=== PATIENT | female | born 1960 | race Caucasian/White ===

== ENCOUNTER 2016-08-22 10:20 | Day surgery (SDC) | payer MEDICAID ==
[~2016-08-22] VITALS: Ht 149.9 cm; Wt 85.0 kg
[2016-08-22] VITALS (14 sets, daily range): BP systolic 121–140; BP diastolic 60–84; PULSE 54–100; RESP 16–21; Ht 149.9 cm; Wt 85.0 kg
[~2016-08-22 10:20] MED LIST: ACETAMINOPHEN 1000 MG/100 ML IVPB ONE; CEFAZOLIN 1 GM INJ ONE
[2016-08-22 11:22] LABS: ADD SCAN DIFF NO
[2016-08-22 11:27] LABS: BASOPHILS % 0.6 % (0.0-2.0); EOSINOPHILS # 0.1 10^3/ul (0.0-0.5); EOSINOPHILS % 1.8 % (0.0-7.0); HEMATOCRIT 38.5 % (37.0-47.0); HEMOGLOBIN 12.5 g/dl (12.0-16.0); LYMPHOCYTES # 3.2 10^3/ul (0.8-2.9); LYMPHOCYTES % 46.4 % (15.0-51.0); MEAN CORPUSCULAR HEMOGLOBIN 28.9 pg (29.0-33.0); MEAN CORPUSCULAR HGB CONC 32.5 g/dl (32.0-37.0); MEAN CORPUSCULAR VOLUME 88.9 fl (82.0-101.0); MEAN PLATELET VOLUME 10.3 fl (7.4-10.4); MONOCYTE # 0.8 10^3/ul (0.3-0.9); MONOCYTES % 11.7 % (0.0-11.0); NEUTROPHIL # 2.7 10^3/ul (1.6-7.5); NEUTROPHILS % 39.4 % (39.0-77.0); PLATELET COUNT 297 10^3/UL (140-415); RED BLOOD COUNT 4.33 10^6/ul (4.20-5.40); RED CELL DISTRIBUTION WIDTH 14.1 % (11.5-14.5); WHITE BLOOD COUNT 6.9 10^3/ul (4.8-10.8)
[2016-08-22] MEDS ORDERED: SOD CHLORIDE 0.9% 1,000 ML IV SCH (11:30)
[2016-08-22] MEDS ORDERED: CEFAZOLIN 1 GM/50 ML (PMX) 50 ML IVPB ONE (11:30)
[2016-08-22 11:48] LABS: INR 0.9; PROTIME 12.1 Sec (12.2-14.2); PT RATIO 0.9
[2016-08-22 11:52] LABS: ALBUMIN 4.4 g/dl (3.3-4.9); BILIRUBIN,INDIRECT 0.5 mg/dl (0-1.1); BILIRUBIN,TOTAL 0.5 mg/dl (0.2-1.3); TOTAL PROTEIN 7.4 g/dl (6.1-8.1)
[2016-08-22 11:53] LABS: ALBUMIN/GLOBULIN RATIO 1.46
[2016-08-22 12:01] LABS: CALCIUM 9.4 mg/dl (8.4-10.2); CREATININE 0.84 mg/dl (0.44-1.00); POTASSIUM 3.9 mmol/L (3.5-5.1)
--- NOTE | 2016-08-22 14:06 | RADRPT ---
PROCEDURE: XR Chest. CLINICAL INDICATION: Preoperative. TECHNIQUE: Single frontal view. COMPARISON: None. FINDINGS: The lungs are clear. Surgical clips are present in the right axilla. The heart size is normal. There is no pleural effusion. There is no pneumothorax. IMPRESSION: 1. Prior right axillary surgery. 2. Otherwise normal chest radiograph. RPTAT: QQ .Prashanth Salcedo MD, MD Date Time Electronically viewed and signed by .Prashanth Salcedo MD, MD on 08/22/2016 14:06 .R/
[2016-08-22] MEDS ORDERED: PROPOFOL 60 ML ONE (14:44)
[2016-08-22] MEDS ORDERED: LIDOCAINE 2% (SDV) 5 ML INJ ONE (14:45)
[2016-08-22] MEDS ORDERED: ROCURONIUM 50 MG INJ ONE (14:45)
[2016-08-22] MEDS ORDERED: FENTAnyl 50 MCG/ML VIAL ONE ×2 (14:46→16:08)
[2016-08-22] MEDS ORDERED: DEXAMETHASONE 4 MG/ML 1 ML INJ ONE (16:08)
[2016-08-22] MEDS ORDERED: ONDANSETRON 4 MG INJ ONE (16:45)
--- NOTE | 2016-08-22 16:57 | RADRPT ---
Vent Rate: 62 bpm RR Interval: 0 msec CA Interval: 146 msec QRS Duration: 94 msec QT Interval: 434 msec QTC Interval: 440 msec P-R-T [place]: 50 - 40 - 13 degrees Normal sinus rhythm Normal ECG Electronically Signed By: Gerardo Corral [id number]
[2016-08-22] MEDS ORDERED: METOCLOPRAMIDE 10 MG INJ IV PRN (17:00)
[2016-08-22] MEDS ORDERED: ONDANSETRON 4 MG INJ IV PRN ×2 (17:00)
[2016-08-22] MEDS ORDERED: HYDROmorphONE (0.2 MG/ML) 10ML SYG IV PRN ×3 (17:00)
[2016-08-22] MEDS ORDERED: EPHEDrine SULFATE 50 MG/5 ML SYG IV PRN (17:00)
[2016-08-22] MEDS ORDERED: FENTAnyl 50 MCG/ML VIAL IV PRN ×3 (17:00)
[2016-08-22] MEDS ORDERED: DIPHENHYDRAMINE 50 MG INJ IV PRN (17:00)
[2016-08-22] MEDS ORDERED: LABETALOL HCL 20MG INJ IV PRN (17:00)
[2016-08-22] MEDS ORDERED: MEPERIDINE 25 MG INJ IV PRN (17:00)
[2016-08-22] MEDS ORDERED: OXYCODONE/ACETAMINOPHEN (5/325) TAB PO PRN ×2 (17:00)
[2016-08-22] MEDS ORDERED: ACETAMINOPHEN 1000MG/100ML IV 100 ML IVPB PRN (17:00)
[2016-08-22] MEDS ORDERED: morphine 2 MG INJ IV PRN (17:00)
[2016-08-22] MEDS ORDERED: hydrALAzine 20 MG INJ IV PRN (17:00)
--- NOTE | 2016-08-22 17:42 | HP ---
Date/Time of Note Date/Time of Note DATE: 08/22/16 TIME: 17:35 Assessment/Plan VTE Prophylaxis VTE Prophylaxis Intervention: SCD's Lines/Catheters IV Catheter Type (from Nrsg): Peripheral IV Assessment/Plan Assessment/Plan - Recurrent cancer of the right breast, status post right radical mastectomy. Continue Zofran as needed for nausea and Tylenol and morphine as needed for pain. Continue IV fluids and postoperative antibiotics. Advance diet as patient tolerates. CBC and BMP tomorrow. Further recommendations based on clinical course. End of care discussed with Dr. Reddy. HPI/ROS Admit Date/Time Admit Date/Time Hx of Present Illness The patient is 55-year-old female with recurrent cancer of the right breast. Patient was diagnosed with invasive carcinoma of the right breast in 1998 and was treated at [facility]. At that time patient underwent breast conservation surgery followed by chemo and radiation therapy. Patient is noted to have right breast mass, subsequent biopsy revealed ductal carcinoma. The patient was evaluated by Dr. Gallegos in surgical consultation. She was brought to the hospital and underwent right radical mastectomy. Postoperatively patient experienced moderate pain and mild nausea. Patient will be admitted for further evaluation and management. ROS 12 point review of systems is negative unless for mentioned in HPI PMH/Family/Social Past Medical History Medical History: no pertinent history Past Surgical History Status post breast conservation surgery of the right breast in 1998, status post biopsy for uterine fibroids in 2004. Family History Significant Family History: no pertinent family hx Social History Alcohol Use: none Smoking Status: Never smoker Drug Use: none Exam/Review of Systems Vital Signs Vitals Vital Signs Date Time Temp Pulse Resp B/P Pulse Ox O2 Delivery O2 Flow Rate FiO2 08/22/16 16:54 98.2 65 18 128/61 99 Nasal Cannula 4.0 Exam Constitutional: alert, oriented Head: atraumatic, normocephalic Eyes: nl conjunctiva Neck: non-tender, supple Respiratory: normal air movement Cardiovascular: nl pulses Gastrointestinal: non-tender, soft Musculoskeletal: nl extremities to inspection Extremities: normal pulses Neurological: nl mental status Skin: other (Status post right radical mastectomy with dry clean and intact dressing in JPs 2) Labs Result Diagram: 08/22/16 1115 08/22/16 1115 Medications Medications Current Medications Sodium Chloride (NS) 1,000 ml @ 75 mls/hr [id number] IV ; Start 08/22/16 at 11:30; Stop 08/23/16 at 00:49 Ondansetron HCl 4 mg 4 mg Q6H PRN IV NAUSEA AND/OR VOMITING; Start 08/22/16 at 17:00 Potassium Chloride/Dextrose/ Sod Cl (D5-1/2ns + KCl 20 Meq) 1,000 ml @ 125 mls/ hr Q8H IV ; Start 08/22/16 at 16:56 Morphine Sulfate 2 mg 2 mg Q1H PRN IV PAIN; Start 08/22/16 at 17:00 Acetaminophen (Ofirmev 1000mg/ 100ml Iv) 100 ml @ 400 mls/hr Q6H PRN IVPB PAIN ; Start 08/22/16 at 17:00 DOMENICA PRETTY Aug 22, 2016 17:42
[2016-08-22] MEDS: D5W-0.45 NACL + KCL 20 MEQ 1,000 ML IV SCH (19:50)
[2016-08-23] VITALS (7 sets, daily range): BP systolic 101–119; BP diastolic 54–59; PULSE 63–69; RESP 14–20
[2016-08-23] MEDS: D5W-0.45 NACL + KCL 20 MEQ 1,000 ML IV SCH ×3 (00:07→12:36)
[2016-08-23 08:37] LABS: ADD SCAN DIFF NO
[2016-08-23 08:57] LABS: BASOPHILS % 0.1 % (0.0-2.0); HEMATOCRIT 37.8 % (37.0-47.0); HEMOGLOBIN 12.1 g/dl (12.0-16.0); LYMPHOCYTES # 1.8 10^3/ul (0.8-2.9); LYMPHOCYTES % 14.1 % (15.0-51.0); MEAN CORPUSCULAR HEMOGLOBIN 28.8 pg (29.0-33.0); MEAN PLATELET VOLUME 10.3 fl (7.4-10.4); MONOCYTE # 0.5 10^3/ul (0.3-0.9); NEUTROPHIL # 10.3 10^3/ul (1.6-7.5); NEUTROPHILS % 81.3 % (39.0-77.0); PLATELET COUNT 265 10^3/UL (140-415); WHITE BLOOD COUNT 12.7 10^3/ul (4.8-10.8)
[2016-08-23 09:20] LABS: CREATININE 0.69 mg/dl (0.44-1.00)
--- NOTE | 2016-08-23 12:46 | PN ---
Date/Time of Note Date/Time of Note DATE: 08/23/16 TIME: 12:45 Assessment/Plan VTE Prophylaxis VTE Prophylaxis Intervention: other Lines/Catheters [facility] Per[facility] IV Urinary Cath still in place: No Assessment/Plan Chief Complaint/Hosp Course 1) breast cancer - s/p mastectomy - monitor - discharge per surgery Problems: Subjective 24 Hr Interval Summary Free Text/Dictation Patient denies any complaints Exam/Review of Systems Vital Signs Vitals Vital Signs Date Time Temp Pulse Resp B/P Pulse Ox O2 Delivery O2 Flow Rate FiO2 08/23/16 12:00 98.0 69 18 115/55 95 Room Air 08/22/16 19:08 2.0 Intake and Output 08/22/16 08/22/16 08/23/16 15:00 23:00 07:00 Intake Total 1300 ml 1565 ml Output Total 65 ml 1125 ml Balance 1235 ml 440 ml Exam Constitutional: well developed Head: atraumatic, normocephalic Neck: supple Respiratory: clear to auscultation Cardiovascular: regular rate and rhythm Gastrointestinal: non-tender, soft Results Result Diagram: 08/23/16 0820 08/23/16 0820 Results 24 hrs Laboratory Tests Test 08/23/16 06:11 08/23/16 08:20 Lab Scanned Report LAB White Blood Count 12.7 #H Red Blood Count 4.20 Hemoglobin 12.1 Hematocrit 37.8 Mean Corpuscular Volume 90.0 Mean Corpuscular Hemoglobin 28.8 L Mean Corpuscular Hemoglobin Concent 32.0 Red Cell Distribution Width 14.0 Platelet Count 265 Mean Platelet Volume 10.3 Neutrophils % 81.3 H Lymphocytes % 14.1 L Monocytes % 4.0 Eosinophils % 0.0 Basophils % 0.1 Nucleated Red Blood Cells % 0.0 Neutrophils # 10.3 H Lymphocytes # 1.8 Monocytes # 0.5 Eosinophils # 0.0 Basophils # 0.0 Nucleated Red Blood Cells # 0.0 Sodium Level 137 Potassium Level 4.0 Chloride Level 105 Carbon Dioxide Level 26 Anion Gap 10 Blood Urea Nitrogen 15 Creatinine 0.69 Glucose Level 134 # Calcium Level 9.0 Medications Medications Current Medications Ondansetron HCl 4 mg 4 mg Q6H PRN IV NAUSEA AND/OR VOMITING; Start 08/22/16 at 17:00 Potassium Chloride/Dextrose/ Sod Cl (D5-1/2ns + KCl 20 Meq) 1,000 ml @ 125 mls/ hr Q8H IV Last administered on 08/23/16 12:36; Admin Dose 125 MLS/HR; Start 08/22/16 at 16:56 Morphine Sulfate 2 mg 2 mg Q1H PRN IV PAIN Last administered on 08/22/16 19:50 ; Admin Dose 2 MG; Start 08/22/16 at 17:00 Acetaminophen (Ofirmev 1000mg/ 100ml Iv) 100 ml @ 400 mls/hr Q6H PRN IVPB PAIN ; Start 08/22/16 at 17:00 ZANDER CLANCY Aug 23, 2016 12:46
--- NOTE | 2016-08-31 08:30 | OPR ---
DATE OF OPERATION: 08/22/2016 PREOPERATIVE DIAGNOSIS: Recurrent cancer, right breast. POSTOPERATIVE DIAGNOSIS: Recurrent cancer, right breast. OPERATION PERFORMED: Right modified radical mastectomy. ANESTHESIA: General. ANESTHESIOLOGIST: Dr. Hurtado. SURGEON: Brady Gallegos MD CAT[employer]ULT AND ARRESTING GEAR OFFICER: Zach Oh MD INDICATION: The patient is a 55-year-old female with a pertinent past medical history of invasive cancer in her right breast diagnosed in 1998 and treated with breast conservation surgery at Hospital. At that time she underwent subsequent adjuvant chemotherapy and radiation. Recently she underwent a surveillance mammography and thought to have suspicious region in her right breast, somewhat away from the site of the previous cancer. Core biopsy confirmed an invasive cancer. She was counseled as to the need for modified radical mastectomy due to the fact that she had previous chemotherapy and radiation. She consented and was scheduled for surgery. DESCRIPTION OF PROCEDURE: The patient was brought to the operating theater and placed under general endotracheal tube anesthesia. The right breast and axillary region was prepped and draped in the usual sterile fashion. Elliptical incision was demarcated with marking pen around the nipple areolar complex including portion of the skin overlying the breast. Incision was carried out with 15 blade scalpel. Subcutaneous tissue was dissected with cautery. Skin edges were then elevated with clamps and skin flaps were created sequentially first using cautery to the clavicle, then medially to the sternal border, inferiorly to the inframammary fold, and laterally until the latissimus dorsi muscle was identified throughout its course. Mastectomy then took place using cautery from medial to lateral to border of the pectoralis major muscle. The border of the pectoralis minor muscle was identified. Clavipectoral fascia was incised with blunt dissection along the chest wall. The long thoracic nerve was identified and kept out of harm's way. More superiorly the axillary vein and thoracodorsal nerve vascular bundle were identified and kept off harm's way. A residual node bearing tissue was meticulously dissected using a ligature device. Final connective tissue attachments to the latissimus dorsi muscle were then transected with cautery. Specimen was removed, oriented, and sent for permanent pathologic analysis. The wound was irrigated and minimal bleeding was controlled with cautery. Two number 10 flat Alexandr-Portillo drains were then brought through the midaxillary line. One was cut to size and laid over the pectoralis major muscle. The other was cut to size and laid within the axilla. Both drains were secured in place with a 2-0 nylon suture in the standard fashion and the skin incision was reapproximated with skin adryan. The patient tolerated the procedure well. Total estimated blood loss was approximately 40 cc. There were no complications. The patient was transported in stable condition to the recovery room where circumferential compression dressing was applied. Dictated By: Brady Gallegos MD /idalmis/chloe /Document#: [id number]
--- NOTE | 2016-09-02 05:04 | PN ---
DATE: 08/23/2016 SUBJECTIVE DATA: The patient is status post right modified radical mastectomy which was done yesterday, 08/22/2016. The patient has no complaints, minimal pain. OBJECTIVE DATA: Vital signs: 98.2, 76, respirations 16, blood pressure 101/59. Saturation 93% on room air. LABORATORY AND DIAGNOSTIC DATA: WBC 12,700. 81% segmented. Hemoglobin 12.1, hematocrit 37.8. The Alexandr-Portillo drainage has been 20 mL and 50 mL respectively in the past 12 hours. ASSESSMENT AND PLAN: 55-year-old female who underwent modified right radical mastectomy because of recurrent cancer of the right breast. Vital signs are stable. Minimal bleeding. Alexandr- Portillo drainage serosanguineous. The patient is free of pain. The patient can be discharged today to be followed by Dr. De La Rosa in his office. The patient is to call the office on Thursday and make an appointment. Dictated By: Bin Durham MD /idalmis/luigi /Document#: [id number]
== END 2016-08-23 20:50 | disposition home or self-care (01) ==
LOC: SDS 10:20 → PP2 18:42 → SDS 08-23 20:50
PROVIDERS: ATTEND Surgery Surgical Oncology
DX: C50.911 Malignant neoplasm of unspecified site of right female breast (principal); Z17.0 Estrogen receptor positive status [ER+]; E66.9 Obesity, unspecified; Z68.37 Body mass index [BMI] 37.0-37.9, adult
CPT/HCPCS: 19307; 71010; 80048; 80053; 84703; 85025; 85610; 85730; 88307; 93005; J0131; J0690; J1100; J2270; J2405; J3010; J3480; Z7512; Z7610

== ENCOUNTER 2016-11-14 07:17 | Day surgery (SDC) | payer MEDICAID ==
[2016-11-14] VITALS (8 sets, daily range): BP systolic 105–150; BP diastolic 60–75; PULSE 60–74; RESP 13–20; Ht 152.4 cm; Wt 87.0 kg
[~2016-11-14] VITALS: Ht 152.4 cm; Wt 87.0 kg
[2016-11-14] MEDS ORDERED: POLYMYXIN/BACITRACIN 1L IRRIG IRR ONE (08:00)
[2016-11-14] MEDS ORDERED: SOD CHLORIDE 0.9% 1,000 ML IV SCH (08:00)
[2016-11-14] MEDS ORDERED: CEFAZOLIN 1 GM/50 ML (PMX) 50 ML IVPB ONE ×3 (08:00→09:54)
[2016-11-14] MEDS ORDERED: HEPARIN 1000 UNITS/ML 10 ML INJ ONE (08:21)
[2016-11-14] MEDS ORDERED: LIDOCAINE 2%/EPI 30 ML INJ ONE (08:21)
[2016-11-14] MEDS ORDERED: SOD CHLORIDE 0.9% 500 ML ONE (08:21)
[2016-11-14] MEDS ORDERED: MIDAZOLAM 1 MG/ML 2 ML INJ ONE ×2 (09:54)
[2016-11-14] MEDS ORDERED: FENTAnyl 50 MCG/ML VIAL ONE ×2 (09:54)
--- NOTE | 2016-11-14 11:09 | RADRPT ---
PROCEDURE: FLUOROSCOPIC AND ULTRASONOGRAPHIC-GUIDED PLACEMENT OF LEFT CHEST PORT. CLINICAL INDICATION: History of right breast cancer. Venous access for chemotherapy. TECHNIQUE: INTRAPROCEDURE MEDICATIONS: PB antibiotic solution 40 cc applied topically. 1 gram Ancef intravenous ly, intra-op. IV Versed and Fentanyl per protocol. TECHNIQUE: Informed consent was obtained. The procedure, risks, benefits, complications and alternat enriqueta were explained to the patient. Risks including bleeding, infection, and pneumothorax were expl ained. The patient understood and was willing to proceed. A procedural pause was performed. The patient's name, date of , and procedure to be performed w ere verified. The central line was inserted with all elements of maximal sterile barrier technique. All of the fol lowing were used: head covering, facial mask, sterile gown, sterile gloves, a large sterile sheet, h and hygiene, and 2% chlorhexidine for cutaneous antisepsis. The left neck and anterior/superior chest wall were prepped and draped in usual sterile fashion. Limited sonography of the left neck was then performed. Noted is a patent left internal jugular vein . Following the local injection of 1% lidocaine, the left internal jugular vein was punctured under so nographic guidance with a 20-gauge needle through which a 0.018 inch floppy tip guidewire was advanc ed into the superior vena cava with fluoroscopic guidance. The tract was dilated to 5 Syrian and t he wire was then replaced with a 0.035 in Glidewire. Serial dilatation was then performed and a 8 F rench peel away sheath was introduced. A site just inferior to the clavicle in the superior anterior left chest wall was localized. One per cent lidocaine was used as local anesthesia. A transverse 3 cm incision was made utilizing a 15 blad e scalpel. Utilizing blunt dissection a subcutaneous pocket was created inferior to the incision. Th e cavity was flushed with approximately 40 cc of PB antibiotic solution. The catheter was tunneled underneath the skin from the newly created pocket to the puncture site in the neck. The central line catheter was pulled through the tract. The catheter was then advanced thr ough the sheath until the tip was positioned in the right atrium. The peel-away sheath was removed. The catheter was flushed and clamped. The catheter was then connected to the 8 Syrian [employer] power port. The port was then placed i nto the pocket. Prior to closing the instrument and sponge count was verified and was correct. The s ubcutaneous tissue was closed with 3-0 Vicryl interrupted suture. The skin at the site of the pocket and in the neck was closed with 4-0 Vicryl suture in a running subcuticular technique. The port was flushed with 2000 units of heparin in 2 cc utilizing a Christensen needle. The needle was removed. A dres sing was applied. The patient tolerated procedure well. COMPARISON: None. FINDINGS: Ultrasound images were recorded and stored in the patient's medical record. Final radiographic images demonstrate the tip of the catheter in the upper right atrium. A total of 0.5 minutes of fluoroscopy time was used. The ultrasound images demonstrate the needle entering th e jugular vein. 4 images of the chest were obtained with image intensifier. IMPRESSION: 1. Successful ultrasonographic and fluoroscopic guided placement of left chest port. RPTAT: QQ .Prashanth Salcedo MD, MD Date Time Electronically viewed and signed by .Prashanth Salcedo MD, on 11/14/2016 11:09 .R/
--- NOTE | 2016-11-14 13:56 | RADRPT ---
PROCEDURE: Ultrasound guidance for placement of needle in left internal jugular vein. CLINICAL INDICATION: Venous access. TECHNIQUE: Prior to the procedure, informed consent was obtained. Risks including bleeding, infection, and pneu mothorax were explained to the patient. The patient understood and was willing to proceed. A procedu ral pause was performed. The patient's name, date of , and procedure to be performed were verif ied. The central line was inserted with all elements of maximal sterile barrier technique. All of th e following were used: head covering, facial mask, sterile gown, sterile gloves, a large sterile she et, hand hygiene, and 2% chlorhexidine for cutaneous antisepsis. The left neck and anterior/superi or chest wall was prepped and draped in usual sterile fashion. Limited sonography of the left neck was then performed. Noted is a patent left internal jugular vein . Ultrasound images were recorded and stored in the patient's medical record. Following the local injection of Xylocaine, the left internal jugular vein was punctured under sonog raphic guidance with a 20-gauge needle through which a 0.018 inch floppy tip guidewire was advanced into the superior vena cava. The patient tolerated the procedure well. The remainder of the proced ure was performed and dictated under separate cover. COMPARISON: None. FINDINGS: The ultrasound images demonstrate a patent left internal jugular vein. The subsequent images demons trate the needle entering the left internal jugular vein. IMPRESSION: 1. Ultrasound guidance for a needle placement in left internal jugular vein. RPTAT: QQ .Prashanth Salcedo MD, Date Time Electronically viewed and signed by .Prashanth Salcedo MD, on 11/14/2016 13:56 .R/
== END 2016-11-14 12:56 | disposition home or self-care (01) ==
LOC: SDS 07:17
PROVIDERS: ATTEND Internal Medicine Hematology & Oncology
DX: C50.911 Malignant neoplasm of unspecified site of right female breast (principal)
CPT/HCPCS: 36561; 76942; C1788; J0690; J1644; J2250; J3010; J7040; Z7610

== ENCOUNTER 2017-05-06 11:18 | Day surgery (SDC) | END 2017-05-06 17:50 | disposition home or self-care (01) ==